=== PATIENT | male | born 1960 | race American Indian/Alaskan Native ===

== ENCOUNTER 2018-11-28 15:27 | Emergency (ER) | payer MEDICAID ==
[~2018-11-28] VITALS: Ht 170.2 cm; Wt 85.0 kg
[~2018-11-28 15:27] MED LIST: IBUP-1985 PO
[2018-11-28 15:29] VITALS: BP 107/99
[2018-11-28] MEDS ORDERED: NAPR-56 PO (16:12)
[2018-11-28] MEDS ORDERED: ketorolac trometh inj. 60 MG/2 ML VIAL IM ONE (16:15)
== END 2018-11-28 16:35 | disposition home or self-care (01) ==
LOC: ER 15:28
DX: M16.11 Unilateral primary osteoarthritis, right hip (principal); M25.562 Pain in left knee; G89.29 Other chronic pain; Z79.899 Other long term (current) drug therapy
CPT/HCPCS: 73502; 96372; 99283; J1885

== ENCOUNTER 2019-07-16 10:49 | Emergency (ER) | payer MEDICAID ==
[~2019-07-16] VITALS: Ht 170.2 cm; Wt 8.3 kg
[2019-07-16 12:09] VITALS: BP 126/97
[2019-07-16] MEDS ORDERED: ONDA4TAB6 PO (12:35)
[2019-07-16] MEDS ORDERED: HYDR-3965 PO (12:35)
[2019-07-16] MEDS ORDERED: HYDROcodone/acetaminophen 10/325mg tab PO ONE (12:40)
[2019-07-16] MEDS ORDERED: ondansetron 4mg rapidly disintigrating tab PO ONE (12:40)
--- NOTE | 2019-07-16 13:12 | NUR ---
Phoned pt's sister to come to the ED to pick him up for discharge to home.
== END 2019-07-16 13:20 | disposition home or self-care (01) ==
LOC: ER 10:49
DX: S42.292A Other displaced fracture of upper end of left humerus, initial encounter for closed fracture (principal); S59.902A Unspecified injury of left elbow, initial encounter; G89.29 Other chronic pain; Z98.890 Other specified postprocedural states; Z79.899 Other long term (current) drug therapy; W18.39XA Other fall on same level, initial encounter; Y93.89 Activity, other specified; Y92.531 Health care provider office as the place of occurrence of the external cause; Y99.8 Other external cause status
CPT/HCPCS: 73030; 73080; 99284